=== PATIENT | female | born 1960 | race Caucasian/White ===

== ENCOUNTER 2022-02-17 23:45 | Inpatient (IN) | payer BC ==
[~2022-02-17] VITALS: Ht 167.6 cm; Wt 99.0 kg
[2022-02-18] VITALS (23 sets, daily range): BP systolic 71–120; BP diastolic 45–86
[2022-02-18] MEDS ORDERED: CYAN25008 PO (01:19)
[2022-02-18] MEDS ORDERED: MELO7.5T29 PO (01:19)
[2022-02-18] MEDS ORDERED: VALS40TA2 PO (01:19)
[2022-02-18] MEDS ORDERED: OMEP20TA63 PO (01:19)
[2022-02-18] MEDS ORDERED: IV DEXTROSE 5% 250 ML BAG. IV PRN (02:15)
[2022-02-18] MEDS ORDERED: HEPARIN for IV BOLUS 10,000 UNIT/10 ML VIAL. IV PRN ×2 (02:15)
[2022-02-18] MEDS ORDERED: DEXTROSE 50% 25 GM / 50ML DISP.SYRIN. IV PRN (02:15)
[2022-02-18] MEDS ORDERED: HEPARIN 25,000UTS/250ML PREMIX 250 ML IV PRN (02:15)
--- NOTE | 2022-02-18 02:36 | NUR ---
Patient arrived to room 115 at 0000 from [facility]. Patient hooked up to ICU monitors. Patient A&Ox4, SR/ST on monitor, on 50% bipap breathing in 20s, patent IV present, no complaints of acute pain, Heparin gtt and fluid bolus running. Patient's skin is cold and pale, states that's normal for her and that her hands sometimes turns purple. Patient states she has been having L sided neck pain since mid November and that her pain now is a 3 which is tolerable and normal for her. Patient oriented to unit routines, call light, bed controls, tv controls, activity, diet, and POC. Difficult to get BP and SpO2 on her due to poor circulation. Dr. Dickey notified of patient arrival, admit orders received. Dr. Guerrero paged as well, awaiting call back.
[2022-02-18 02:39] LABS: BASE EXCESS ABG -3 mmol/L (-3-3); FIO2 ABG 50; HCO3 ABG 20 mmol/L (21-28); PCO2 ABG 32 mmHg (35-46); PO2 ABG 212 mmHg (65-108); SAT O2 ABG 99 % (92-99)
[2022-02-18] MEDS: ANTI-COAG MONITOR BY PHARMACY. MC PRN ×2 (03:44→16:05)
[2022-02-18] MEDS: ONDANSETRON PF 4 MG/2 ML VIAL. IVP PRN (04:01)
[2022-02-18 06:08] LABS: BASO % 0 % (0-3); EOS % 0 % (0-3); HEMATOCRIT 43.1 % (36.0-47.0); LYMPH # 0.8 x10^3/uL (1.0-4.8); LYMPH % 5 % (24-48); MEAN CORPUSCULAR HEMOGLOBIN 31 pg (25-35); MEAN CORPUSCULAR HGB CONC 33 g/dL (31-37); MEAN CORPUSCULAR VOLUME 95 fL (79-100); MONO # 0.6 x10^3/uL (0.0-1.1); MONO % 4 % (0-9); NEUT # 13.9 x10^3/uL (1.8-7.7); NEUT % 90 % (31-73); PLATELET COUNT 163 x10^3/uL (140-400); RED BLOOD COUNT 4.51 x10^6/uL (3.50-5.40); RED CELL DISTRIBUTION WIDTH 16.9 % (11.5-14.5); WHITE BLOOD COUNT 15.4 x10^3/uL (4.0-11.0)
[2022-02-18 06:22] LABS: CALCIUM 8.7 mg/dL (8.5-10.1); CREATININE 1.4 mg/dL (0.6-1.0); GFR 38.1
[2022-02-18] MEDS: INSULIN LISPRO 300 UNITS/3 ML VIAL. SQ SCH ×3 (08:00→17:00)
[2022-02-18 08:40] LABS: BASE EXCESS ABG 2 mmol/L (-3-3); HCO3 ABG 24 mmol/L (21-28); PCO2 ABG 30 mmHg (35-46); PO2 ABG 118 mmHg (65-108); SAT O2 ABG 98 % (92-99)
[2022-02-18 08:44] LABS: FIO2 ABG 35
--- NOTE | 2022-02-18 09:32 | CONS ---
DATE OF CONSULTATION: 02/18/2022 PULMONARY CONSULTATION ATTENDING PHYSICIAN: Mar Dickey MD REASON FOR CONSULTATION: Pulmonary embolism, acute hypoxic respiratory failure. HISTORY OF PRESENT ILLNESS: The patient is a 61-year-old obese female with a BMI of 34.6. The patient was presented to [facility] with dyspnea. She said she felt like she was fainting. She had a near syncopal episode. There was some chest pain as well. She underwent evaluation and a CT angiogram was performed. I have reviewed the patient's CT angiogram. It shows bilateral pulmonary embolism. The patient had evidence of right ventricular strain as well. There was sparing of the main stem pulmonary artery. The patient's troponin level was also high, it was 405. She has been transferred to our facility for further evaluation. She is currently on BiPAP at 40% FiO2. Her arterial blood gases reveal a pO2 in the 200. CO2 was not elevated. She denies any prior history of thromboembolism. She has some mild lower extremity edema. She has no known cancers. She is not on any hormone treatment. She states that she is relatively active. Consultation requested for further evaluation and management. PAST MEDICAL HISTORY: No significant history of tobaccoism. No prior history of pulmonary embolism. No known cancers. PAST SURGICAL HISTORY: No recent surgery. ALLERGIES: ALLOPURINOL, BENAZEPRIL, AND LATEX. MEDICATIONS: Reviewed including heparin per protocol. REVIEW OF SYSTEMS: Twelve-point systems obtained. Pertinent positives discussed in my present illness, otherwise noncontributory. All systems that were negative were reviewed as well. SOCIAL HISTORY: No significant tobaccoism. She is updated on COVID vaccine. FAMILY HISTORY: Noncontributory to lungs. PHYSICAL EXAMINATION: VITAL SIGNS: Reviewed. Pulse ox 99%. Blood pressure 113/73. She is afebrile. Pulse is 94-102. NECK: Supple. LUNGS: Clear. CARDIOVASCULAR: With a regular rate. ABDOMEN: Soft, obese. EXTREMITIES: With trace pitting edema bilaterally. LABORATORY DATA: Reviewed. White cell count 15.4, hemoglobin 14.0, platelets are 163. BUN 6, creatinine 1.4. ABGs with a pH of 7.52, pCO2 of 30 and a pO2 of 118 on 35% BiPAP. IMPRESSION: 1. Acute hypoxic respiratory failure secondary to extensive bilateral pulmonary emboli with sparing of the main pulmonary trunk. Etiology not so obvious. She has no known cancers. She has no recent surgery. She is not on any hormone replacement treatment. 2. Abnormal CT angiogram as discussed above. 3. Abnormal troponin, likely secondary to right ventricular ischemia. 4. Rule out deep venous thrombosis. 5. Rule out hypercoagulable state. RECOMMENDATIONS: 1. Discussed with RN and RT. We will try her off the BiPAP. 2. Place her on nasal cannula. 3. Obtain venous Dopplers of lower extremities. 4. Continue heparin per protocol. 5. Obtain echocardiogram. 6. Hypercoagulable panel as an outpatient. 7. Further recommendations to follow. 8. Discussed with Dr. Dickey and discussed with RN. Chart reviewed from [place]. Imaging studies reviewed. Total critical care time [address]: Any TID: [id number]
--- NOTE | 2022-02-18 09:32 | PDOC2 ---
DILLAN CHRIS ZOO CARETAKER 02/18/22 0932: CARDIAC CONSULT DATE OF CONSULT Date of Consult DATE: 02/18/22 TIME: 09:28 REASON FOR CONSULT Reason for Consult: NSTEMI REFERRING PHYSICIAN Referring Physician: Dr. Dickey SOURCE Source: Chart review, Patient HISTORY OF PRESENT ILLNESS HISTORY OF PRESENT ILLNESS This is a 61 yo female who initially presented to [facility] secondary to shortness of breath. Patient reports experiencing shortness of breath upon exertion since Friday. Has progressively worsened. Has also experienced nausea/vomiting and diarrhea. On Friday went up the stairs and became so significantly short of breath that she nearly passed out. Baring pressure in her central chest. EMS was called. Oxygen saturation was noted in the 80's. Patient was placed on nonrebreather. Chest xray without acute findings. Chest CTA noted with extensive bilateral pulmonary emboli with mild enlargement of the right lateral ventricle. Anticoagulation therapy was initiated. Troponin noted to be mildly elevated, which prompted this consult. Patient was transferred to [facility] for further evaluation and treatment. PAST MEDICAL HISTORY Cardiovascular: HTN GI: GERD Musculoskeletal: Osteoarthritis PAST SURGICAL HISTORY Past Surgical History: Total knee replacement, Other (spinal fusion) FAMILY HISTORY Family History: Heart Disease, Hypertension, Stroke SOCIAL HISTORY Smoke: No ALCOHOL: none Drugs: None Lives: Alone CURRENT MEDICATIONS CURRENT MEDICATIONS Current Medications Medications (Trade) Dose Ordered Sig/Esthela Route PRN Reason Start Time Stop Time Status Last Admin Dose Admin Ondansetron HCl (Zofran) 4 mg PRN Q6HRS PRN IVP NAUSEA/VOMITING 1ST CHOICE 02/18/22 02:15 02/18/22 04:01 Info (Anti-Coagulation Monitoring By Pharmacy) 1 each PRN DAILY PRN MC PER PROTOCOL 02/18/22 02:45 02/18/22 03:44 ALLERGIES ALLERGIES: Coded Allergies: latex (Verified Allergy, Severe, 02/18/22) allopurinol (Verified Allergy, Intermediate, Vomiting, 02/18/22) benazepril (Verified Allergy, Intermediate, 02/18/22) ROS Review of System 14 point ROS conducted with pertinent positives noted above in HPI PHYSICAL EXAM General: Alert, Oriented X3, Cooperative, mild distress HEENT: Atraumatic Lungs: Other (diminished throughout ) Heart: Regular rate (SR with PAC's ) Abdomen: Soft Extremities: No edema Skin: No significant lesion Neuro: Normal speech, Sensation intact Psych/Mental Status: Mental status NL, Mood NL MUSCULOSKELETAL: Osteoarthritic changes both hands VITALS/I&O VITALS/I&O: Vital Signs Date Time Temp Pulse Resp B/P (MAP) Pulse Ox O2 Delivery O2 Flow Rate FiO2 02/18/22 08:15 98 BiPAP/CPAP 02/18/22 06:00 102 28 113/73 (86) 02/18/22 04:00 97.6 97.6 I & O 02/17/22 02/17/22 02/18/22 15:00 23:00 07:00 Intake Total 71 ml Balance 71 ml LABS Lab: Laboratory Tests Test 02/18/22 01:27 02/18/22 04:30 02/18/22 08:00 O2 Saturation 99 % (92-99) 98 % (92-99) Arterial Blood pH 7.42 (7.35-7.45) 7.52 (7.35-7.45) H Arterial Blood pCO2 at Patient Temp 32 mmHg (35-46) L 30 mmHg (35-46) L Arterial Blood pO2 at Patient Temp 212 mmHg (65-108) H 118 mmHg (65-108) H Arterial Blood HCO3 20 mmol/L (21-28) L 24 mmol/L (21-28) Arterial Blood Base Excess -3 mmol/L (-3-3) 2 mmol/L (-3-3) FiO2 50 35 White Blood Count 15.4 x10^3/uL (4.0-11.0) H Red Blood Count 4.51 x10^6/uL (3.50-5.40) Hemoglobin 14.0 g/dL (12.0-15.5) Hematocrit 43.1 % (36.0-47.0) Mean Corpuscular Volume 95 fL (79-100) Mean Corpuscular Hemoglobin 31 pg (25-35) Mean Corpuscular Hemoglobin Concent 33 g/dL (31-37) Red Cell Distribution Width 16.9 % (11.5-14.5) H Platelet Count 163 x10^3/uL (140-400) Neutrophils (%) (Auto) 90 % (31-73) H Lymphocytes (%) (Auto) 5 % (24-48) L Monocytes (%) (Auto) 4 % (0-9) Eosinophils (%) (Auto) 0 % (0-3) Basophils (%) (Auto) 0 % (0-3) Neutrophils # (Auto) 13.9 x10^3/uL (1.8-7.7) H Lymphocytes # (Auto) 0.8 x10^3/uL (1.0-4.8) L Monocytes # (Auto) 0.6 x10^3/uL (0.0-1.1) Eosinophils # (Auto) 0.0 x10^3/uL (0.0-0.7) Basophils # (Auto) 0.0 x10^3/uL (0.0-0.2) Heparin Anti-Xa Act, Unfractionated 0.36 IU/mL (0.30-0.70) Sodium Level 140 mmol/L (136-145) Potassium Level 4.0 mmol/L (3.5-5.1) Chloride Level 101 mmol/L (98-107) Carbon Dioxide Level 23 mmol/L (21-32) Anion Gap 16 (6-14) H Blood Urea Nitrogen 6 mg/dL (7-20) L Creatinine 1.4 mg/dL (0.6-1.0) H Estimated GFR (Cockcroft-Gault) 38.1 Glucose Level 166 mg/dL (70-99) H Calcium Level 8.7 mg/dL (8.5-10.1) Troponin I High Sensitivity 375 ng/L (4-50) H Laboratory Tests 02/18/22 04:30 Laboratory Tests 02/18/22 04:30 ASSESSMENT/PLAN ASSESSMENT/PLAN 1. Acute respiratory failure secondary to extensive bilateral PE; on heparin gtt. Etiology not clear. Awaiting COVID PCR 2. Chest pain, near syncope; most probably secondary to above. resolved 3. Mild troponin elevation; peak high sensitivity trop 405. Most probably type II, demand ischemia secondary to #1 4. Hypertension; controlled 5. Leukocytosis 6. Hyperglycemia; glucose 377 at [facility] 7. JEAN CLAUDE 8. Morbid obesity Recommendations Echo to assess LV systolic function, RV dilation Lipids A1C Anticoagulation as per pulmonary Supportive care Further pending above. JOSUE SALAS MD 02/18/22 1933: CARDIAC CONSULT ASSESSMENT/PLAN ASSESSMENT/PLAN Patient seen and examined. Agree with above nurse practitioner note. 61-year-old woman with bilateral PE. I have reviewed the CT scan images with the radiologist. No central pulmonary thrombus at therefore she would not be a great candidate for percutaneous thrombectomy. Continue anticoagulation. CC time > 35 minutes DILLAN CHRIS APRN Feb 18, 2022 09:32 JOSUE SALAS MD Feb 18, 2022 16:41
[2022-02-18 10:38] LABS: CHOLESTEROL/HDL RATIO 3.2
--- NOTE | 2022-02-18 11:28 | HP ---
DATE OF SERVICE: 02/18/2022 ADMIT DATE: 02/18/2022 HISTORY OF PRESENT ILLNESS: The patient is a 61-year-old female patient who presented to the Emergency Room of [facility] with a complaint of shortness of breath, the patient apparently has been feeling generally ill like she has cold with a fever for a couple of days. She has had more chills today, she started to have significant increasing shortness of breath yesterday evening that she called EMS. When EMS arrived, they found her to be hypoxic with an oxygen saturation of only 80%. They placed her on nonrebreather mask. She denied any previous history of lung or cardiac history. She was extensively investigated in the Emergency Room, has had an EKG, which showed that she was in sinus tachycardia with normal axis, no ST segment elevation or depression. She was in AFib. She has had a chest x-ray, which basically showed the cardiomediastinal silhouette and pulmonary vessels are within normal limits. The pleural spaces are clear and there is no acute cardiopulmonary process. Her lab work showed that she has marked leukocytosis with a white cell count 19,600 with normal hemoglobin, hematocrit and platelet. Her prothrombin time and INR slightly elevated, APTT was 21. She was initially diagnosed with a non-ST segment elevation myocardial infarction as troponin I high sensitivity was 405. However, subsequently she had a CT angio of the chest and this showed that the visualized portion of the thyroid are unremarkable with enlarged mediastinal lymph nodes. Heart size normal. No pericardial effusion. Thoracic aorta has a normal course and caliber. Pulmonary artery is not enlarged. There is extensive bilateral pulmonary emboli extending from the right and left main pulmonary artery into lobar and segmental branches. Airways are patent. No consolidation or pneumothorax. No suspicious lung nodules. No pleural effusion or thickening. Visualized upper abdomen is unremarkable. No suspicious osseous lesion or acute fracture. The patient was started on heparin drip and was transferred to [facility] ICU for further evaluation and treatment. PAST MEDICAL HISTORY: Significant for hypertension, generalized osteoarthritis, and gout. PAST SURGICAL HISTORY: Significant for lumbar laminectomy at L4-S1. She has bilateral total knee arthroplasty and tonsillectomy. ALLERGIES: SHE IS ALLERGIC TO LATEX. MEDICATIONS: She is currently on losartan 50 mg once a day, Prilosec 20 mg once a day, meloxicam 15 mg once a day, B12 tablet 1000 mcg once a day. FAMILY HISTORY: He has one brother, younger, because of AIDS. Her father at age of 55 because of sudden cardiac . Her mother committed suicide at the age of 30. SOCIAL HISTORY: She is single, never , has no children. She never smoked. Drinks 1-2 cans of beer daily and moderate on the weekend and does not use any illicit drugs. 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 REVIEW OF SYSTEMS: The patient denied any blurring of vision, cataracts, glaucoma or macular degeneration. Denied any earache, tinnitus or sensory deafness. Denied any nosebleed, stuffy nose or postnasal drip. Denied any sore throat, sore tongue, toothache, hoarseness of voice or difficulty swallowing. She denied any nausea, vomiting, diarrhea or constipation. Denied any hematemesis, melena or hematochezia. Denied any dysuria, frequency or hematuria. Denied any chest pain. Did complain of shortness of breath, cough that was dry without any sputum or hemoptysis. Denied any orthopnea or paroxysmal nocturnal dyspnea. On further questioning showed that the patient has not traveled for long distances by air or land. She is not on any hormonal replacement therapy. She has not had any recent surgery and basically, her pulmonary emboli are unprovoked. She has no family history of clotting disorder raising the possibility that she probably has some underlying malignancy and/or that this is a complication of perhaps recent COVID infection, although his coronavirus is still pending at the time of this dictation. PHYSICAL EXAMINATION: GENERAL: On arrival to the Emergency Room, the patient was clearly in respiratory distress. She was markedly tachypneic, tachycardic, but no pallor, jaundice, cyanosis or thyromegaly. No jugular venous distention, bilateral lower extremity edema. VITAL SIGNS: Her heart rate was 116, blood pressure was 123/83, temperature was 97.6, respiratory rate was 36 and oxygen saturation was 87% on room air that has improved to 100% when she was started on BiPAP. HEAD, EYES, EARS, NOSE, AND THROAT: Normocephalic, atraumatic. NECK: Supple. HEART: Showed normal first and second heart sounds. No gallop, rub or murmur. CHEST: Showed central trachea, equal bilateral expansion, air entry, vesicular breath sounds. No crepitation or rhonchi. ABDOMEN: Distended, soft, nontender. NEUROLOGIC: She was grossly intact. LABORATORY DATA: Showed a serum sodium was 135, potassium 3.7, chloride 95, bicarbonate 19, anion gap of 20, BUN 2, creatinine is 1.5. Estimated GFR was 35 mL per minute. Her glucose was 377, calcium was 8.6. Total bilirubin, AST, ALT were normal. Alkaline phosphatase slightly elevated. Troponin I high sensitivity was 405. Total protein 5.7, albumin was 2.8. Her white cell count was 19.6, hemoglobin 14.6, hematocrit 45, MCV 98 and platelet count of 176,000 with automated differential showed 86% polymorphs, 8% lymphocytes and 6% monocytes. ASSESSMENT: In summary, this is a 61-year-old female patient who was originally seen with increasing shortness of breath and acute hypoxic respiratory failure. Initial investigation showed the troponin I to be high at 405; however, further evaluation showed that she has bilateral pulmonary emboli. The patient also is known to have hypertension, gout, generalized osteoarthritis. Her lab work showed that she has slightly deranged coagulation in the form of prothrombin time. INR is slightly elevated. Her BUN is extremely low at 2. Her blood sugar was high at 377 and she has marked leukocytosis, probably reactive. The patient was started on heparin and continued on BiPAP machine and was transferred to [facility] to consult with the manager food and the mechanical systems engineer. I held her losartan given her blood pressure is low and she has also impaired kidney function with a creatinine of 1.5. We will monitor her blood sugar. She seemed to be diabetic as her blood sugar was 277. We will start her on insulin sliding scale. LANI DR: Jaja TID: [id number]
[2022-02-18] MEDS: PANTOPRAZOLE IV PUSH 40 MG VIAL. IVP SCH (12:00)
[2022-02-18] MEDS ORDERED: IV NORMAL SALINE 500ML BAG 500 ML IV ONE (14:15)
[2022-02-18] MEDS: IV NORMAL SALINE 1000ML BAG 1,000 ML IV SCH (14:30)
--- NOTE | 2022-02-18 16:53 | RAD ---
US BILATERAL LOWEREXTREMITY VENOUS DOPPLER 02/18/2022 2:40 PM Clinical Information: Leg edema, PUI. Comparison: None. Technique: Multiple grayscale, color Doppler, and spectral Doppler sonographic images of the lower ex tremity venous structures were obtained. Findings: The right common femoral, femoral, and popliteal veins exhibit normal compression, respiratory phasic ity, and augmentation. No intraluminal thrombi are identified. Color Doppler flow is demonstrated in the right posterior tibial veins. The left common femoral, femoral, and popliteal veins exhibit normal compression, respiratory phasici ty, and augmentation. No intraluminal thrombi are identified. Color Doppler flow is demonstrated in t he left posterior tibial veins. Greater saphenous veins are patent at the saphenofemoral junction. Impression: 1. No evidence of deep venous thrombosis. Electronically signed by: Shama Ogden MD (02/18/2022 4:50 PM) [facility]ITAL[facility]
--- NOTE | 2022-02-18 17:26 | CARD ---
MR#: [id number] Date of Study: 02/18/2022 Ordering Physician: ZACH RAO, Referring Physician: Russell TAY: Deejay Stephens [facility] APPROVED REPORT EXAM: Two-dimensional and M-mode echocardiogram with Doppler and color Doppler. Other Information Quality : FairHR: 94bpm Rhythm : NSRTechnically limited study due to body habitus. INDICATION CVA/TIA Chest Pain Pulmonary Embolism RISK FACTORS Hypertension Obesity 2D DIMENSIONS Left Atrium(2D)3.6 (1.6-4.0cm)IVSd1.1 (0.7-1.1cm) Aortic Root(2D)3.3 (2.0-3.7cm)LVDd3.7 (3.9-5.9cm) LVOT Diameter1.7 (1.8-2.4cm)PWd1.1 (0.7-1.1cm) LVDs2.5 (2.5-4.0cm)FS (%) 34.4 % SV38.3 mlLVEF(%)64.3 (>50%) Aortic Valve AoV Peak Jairo.104.4cm/sAoV VTI19.6cm AO Peak GR.4.4mmHgAO Mean GR.3mmHg Mitral Valve MV E Bnqridms57.4cm/sMV DECEL [id number] MV A Tuhgctnv82.9cm/sE/A Ratio0.6 TDI Medial E' P. V5.21cm/sE/Medial E'7.2 Tricuspid Valve TR P. Uffdtwju967jn/sTR Peak Gr.27mmHg LEFT VENTRICLE The left ventricle is normal size. There is normal left ventricular wall thickness. The left ventricu lar systolic function is normal and the ejection fraction is within normal range. EF 55% There is a f lattened septum consistent with right ventricle volume and pressure overload. Otherwise, grossly norm al wall motion. Tissue Doppler imaging reveals moderate left ventricular diastolic dysfunction. No le ft ventricle thrombus noted on this study. There is no ventricular septal defect visualized. There is no left ventricular aneurysm. There is no mass noted in the left ventricle. RIGHT VENTRICLE The right ventricle is moderately dilated. There is normal right ventricular wall thickness. RV Systo lic function is mildly reduced. ATRIA The left atrium size is normal. The right atrium is moderately dilated. The interatrial septum is int act with no evidence for an atrial septal defect or patent foramen ovale as noted on 2-D or Doppler i maging. AORTIC VALVE The aortic valve is not well visualized. Doppler and Color Flow revealed no significant aortic regurg itation. There is no significant aortic valvular stenosis. MITRAL VALVE The mitral valve is normal in structure and function. There is no evidence of mitral valve prolapse. There is no mitral valve stenosis. Doppler and Color Flow revealed no mitral valve regurgitation note d. TRICUSPID VALVE Not well visualized. Doppler and Color Flow revealed trace to mild tricuspid regurgitation. The PA pr essure was estimated at 42 mmHg. There is no tricuspid valve prolapse or vegetation. There is no tric uspid valve stenosis. PULMONIC VALVE The pulmonary valve is not well visualized. Doppler and Color Flow revealed no pulmonic valvular regu rgitation. There is no pulmonic valvular stenosis. GREAT VESSELS The aortic root is normal in size. The ascending aorta is normal in size. The IVC is normal in size a nd collapses >50% with inspiration. PERICARDIAL EFFUSION There is no pleural effusion. There is no evidence of significant pericardial effusion. Critical Notification Critical Value: No <Conclusion> The left ventricular systolic function is normal and the ejection fraction is within normal range. EF 55% There is a flattened septum consistent with right ventricle volume and pressure overload. Otherwise, grossly normal wall motion. The right ventricle is moderately dilated. RV Systolic function is mildly reduced. Doppler and Color Flow revealed trace to mild tricuspid regurgitation. The PA pressure was estimated at 42 mmHg. Signed by : Иван Guerrero, Electronically Approved : 02/18/2022 17:26:05
[2022-02-19] VITALS (14 sets, daily range): BP systolic 99–152; BP diastolic 68–99
[2022-02-19 01:09] LABS: HEMOGLOBIN A1C 5.4 % (4.8-5.6)
[2022-02-19] MEDS: IV NORMAL SALINE 1000ML BAG 1,000 ML IV SCH (02:02)
[2022-02-19] MEDS: INSULIN LISPRO 300 UNITS/3 ML VIAL. SQ SCH ×3 (08:00→17:00)
[2022-02-19] MEDS: PANTOPRAZOLE IV PUSH 40 MG VIAL. IVP SCH (08:21)
[2022-02-19 08:49] LABS: BASO # 0.1 x10^3/uL (0.0-0.2); BASO % 1 % (0-3); EOS # 0.1 x10^3/uL (0.0-0.7); EOS % 1 % (0-3); HEMATOCRIT 39.8 % (36.0-47.0); HEMOGLOBIN 12.7 g/dL (12.0-15.5); LYMPH # 1.4 x10^3/uL (1.0-4.8); LYMPH % 17 % (24-48); MEAN CORPUSCULAR HEMOGLOBIN 31 pg (25-35); MEAN CORPUSCULAR HGB CONC 32 g/dL (31-37); MEAN CORPUSCULAR VOLUME 96 fL (79-100); MONO # 0.6 x10^3/uL (0.0-1.1); MONO % 8 % (0-9); NEUT # 5.9 x10^3/uL (1.8-7.7); NEUT % 74 % (31-73); PLATELET COUNT 164 x10^3/uL (140-400); RED BLOOD COUNT 4.16 x10^6/uL (3.50-5.40); RED CELL DISTRIBUTION WIDTH 16.9 % (11.5-14.5)
[2022-02-19 09:11] LABS: ALBUMIN 2.5 g/dL (3.4-5.0); ALBUMIN/GLOBULIN RATIO 0.8 (1.0-1.7); CALCIUM 8.3 mg/dL (8.5-10.1); GFR 56.2; POTASSIUM 3.5 mmol/L (3.5-5.1); TOTAL BILIRUBIN 0.5 mg/dL (0.2-1.0); TOTAL PROTEIN 5.8 g/dL (6.4-8.2)
--- NOTE | 2022-02-19 09:19 | PN ---
DATE: 02/19/2022 SUBJECTIVE: The patient is resting, slightly propped up in bed, no apparent distress. She is awake, alert. On questioning her, denied any complaint except that she is hungry and thirsty. She is now on 3 liters of oxygen by nasal cannula, maintaining her oxygen saturation at 99%. Her venous Doppler ultrasound of both lower extremities was negative and her echocardiogram showed that she has normal left ventricular systolic function and ejection fraction that was within normal range at 55%. There is a flattened septum consistent with right ventricular volume and pressure overload. Otherwise, grossly normal wall motion. The right ventricle is moderately dilated. Right ventricular systolic function is mildly reduced. Doppler and color flow revealed mild tricuspid regurgitation. Her pulmonary artery pressure was estimated at 42 mmHg. PHYSICAL EXAMINATION: GENERAL: When I examined her this morning, she looked well and was clearly in no apparent respiratory distress. No pallor, jaundice, cyanosis or thyromegaly. No jugular venous distention. No limb edema. VITAL SIGNS: Her heart rate was 78, blood pressure is 127/71, temperature was 98.3, respiratory rate was 24 and oxygen saturation was 99% on 2 liters of oxygen by nasal cannula. HEAD, EYES, EARS, NOSE, AND THROAT: Normocephalic, atraumatic. NECK: Supple. HEART: Showed normal first and second heart sounds. No gallop, rub or murmur. CHEST: Clear to auscultation, no crepitation or rhonchi. ABDOMEN: Distended, soft, nontender. NEUROLOGIC: She was grossly intact. LABORATORY DATA: Lab work this morning showed a white cell count of 8000, hemoglobin 13, hematocrit 39, MCV 96, platelet count of 164,000. Her chemistry showed a serum sodium 140, potassium 4, chloride 101, bicarbonate 23, anion gap of 16, BUN 6, creatinine 1.4. Estimated GFR was 38 mL per minute. Her glucose 166, calcium was 8.7, her hemoglobin A1c was 5.4, serum triglycerides 102. Total cholesterol 131, LDL was 70, VLDL was 20 and HDL cholesterol was 41, the ratio 3.2. ASSESSMENT: 1. This is a 61-year-old female patient with unprovoked bilateral pulmonary emboli. Other than morbid obesity, the patient has no other predisposing factor. 2. Hypertension. 3. Generalized osteoarthritis. 4. Gout. PLAN: Plan is to obviously continue with heparin drip, continue with IV Protonix, continue with IV fluid, continue with nutritional support in the form of a regular diet. We will also start physical and occupational therapy. CARMEN DR: Jaja TID: [id number]
--- NOTE | 2022-02-19 09:46 | PDOC ---
PULMONARY PROGRESS NOTES DATE: 02/19/22 TIME: 09:43 Subjective Patient feels much better. Off the BiPAP. On nasal cannula. Vitals Vital Signs Date Time Temp Pulse Resp B/P (MAP) Pulse Ox O2 Delivery O2 Flow Rate FiO2 02/19/22 09:00 75 20 115/74 (88) 100 3.0 02/19/22 08:00 97.7 97.7 02/19/22 08:00 Nasal Cannula General: Alert, No acute distress Lungs: Clear Cardiovascular: S1 Abdomen: Soft, Other (Obese) Extremities: No Edema Skin: Warm Labs Laboratory Tests Test 02/18/22 01:27 02/18/22 04:30 02/18/22 08:00 02/18/22 10:30 O2 Saturation 99 % (92-99) 98 % (92-99) Arterial Blood pH 7.42 (7.35-7.45) 7.52 (7.35-7.45) Arterial Blood pCO2 at Patient Temp 32 mmHg (35-46) 30 mmHg (35-46) Arterial Blood pO2 at Patient Temp 212 mmHg (65-108) 118 mmHg (65-108) Arterial Blood HCO3 20 mmol/L (21-28) 24 mmol/L (21-28) Arterial Blood Base Excess -3 mmol/L (-3-3) 2 mmol/L (-3-3) FiO2 50 35 White Blood Count 15.4 x10^3/uL (4.0-11.0) Red Blood Count 4.51 x10^6/uL (3.50-5.40) Hemoglobin 14.0 g/dL (12.0-15.5) Hematocrit 43.1 % (36.0-47.0) Mean Corpuscular Volume 95 fL (79-100) Mean Corpuscular Hemoglobin 31 pg (25-35) Mean Corpuscular Hemoglobin Concent 33 g/dL (31-37) Red Cell Distribution Width 16.9 % (11.5-14.5) Platelet Count 163 x10^3/uL (140-400) Neutrophils (%) (Auto) 90 % (31-73) Lymphocytes (%) (Auto) 5 % (24-48) Monocytes (%) (Auto) 4 % (0-9) Eosinophils (%) (Auto) 0 % (0-3) Basophils (%) (Auto) 0 % (0-3) Neutrophils # (Auto) 13.9 x10^3/uL (1.8-7.7) Lymphocytes # (Auto) 0.8 x10^3/uL (1.0-4.8) Monocytes # (Auto) 0.6 x10^3/uL (0.0-1.1) Eosinophils # (Auto) 0.0 x10^3/uL (0.0-0.7) Basophils # (Auto) 0.0 x10^3/uL (0.0-0.2) Heparin Anti-Xa Act, Unfractionated 0.36 IU/mL (0.30-0.70) 0.50 IU/mL (0.30-0.70) Sodium Level 140 mmol/L (136-145) Potassium Level 4.0 mmol/L (3.5-5.1) Chloride Level 101 mmol/L (98-107) Carbon Dioxide Level 23 mmol/L (21-32) Anion Gap 16 (6-14) Blood Urea Nitrogen 6 mg/dL (7-20) Creatinine 1.4 mg/dL (0.6-1.0) Estimated GFR (Cockcroft-Gault) 38.1 Glucose Level 166 mg/dL (70-99) Hemoglobin A1c 5.4 % (4.8-5.6) Calcium Level 8.7 mg/dL (8.5-10.1) Troponin I High Sensitivity 375 ng/L (4-50) Triglycerides Level 102 mg/dL (0-150) Cholesterol Level 131 mg/dL (0-200) LDL Cholesterol, Calculated 70 mg/dL (0-100) VLDL Cholesterol, Calculated 20 mg/dL (0-40) Non-HDL Cholesterol Calculated 90 mg/dL (0-129) HDL Cholesterol 41 mg/dL (40-60) Cholesterol/HDL Ratio 3.2 Test 02/18/22 17:50 02/19/22 08:00 02/19/22 08:25 02/19/22 09:17 Heparin Anti-Xa Act, Unfractionated 0.67 IU/mL (0.30-0.70) 0.51 IU/mL (0.30-0.70) White Blood Count 8.0 x10^3/uL (4.0-11.0) Red Blood Count 4.16 x10^6/uL (3.50-5.40) Hemoglobin 12.7 g/dL (12.0-15.5) Hematocrit 39.8 % (36.0-47.0) Mean Corpuscular Volume 96 fL (79-100) Mean Corpuscular Hemoglobin 31 pg (25-35) Mean Corpuscular Hemoglobin Concent 32 g/dL (31-37) Red Cell Distribution Width 16.9 % (11.5-14.5) Platelet Count 164 x10^3/uL (140-400) Neutrophils (%) (Auto) 74 % (31-73) Lymphocytes (%) (Auto) 17 % (24-48) Monocytes (%) (Auto) 8 % (0-9) Eosinophils (%) (Auto) 1 % (0-3) Basophils (%) (Auto) 1 % (0-3) Neutrophils # (Auto) 5.9 x10^3/uL (1.8-7.7) Lymphocytes # (Auto) 1.4 x10^3/uL (1.0-4.8) Monocytes # (Auto) 0.6 x10^3/uL (0.0-1.1) Eosinophils # (Auto) 0.1 x10^3/uL (0.0-0.7) Basophils # (Auto) 0.1 x10^3/uL (0.0-0.2) Sodium Level 143 mmol/L (136-145) Potassium Level 3.5 mmol/L (3.5-5.1) Chloride Level 106 mmol/L (98-107) Carbon Dioxide Level 27 mmol/L (21-32) Anion Gap 10 (6-14) Blood Urea Nitrogen 11 mg/dL (7-20) Creatinine 1.0 mg/dL (0.6-1.0) Estimated GFR (Cockcroft-Gault) 56.2 BUN/Creatinine Ratio 11 (6-20) Glucose Level 134 mg/dL (70-99) Calcium Level 8.3 mg/dL (8.5-10.1) Total Bilirubin 0.5 mg/dL (0.2-1.0) Aspartate Amino Transf (AST/SGOT) 32 U/L (15-37) Alanine Aminotransferase (ALT/SGPT) 24 U/L (14-59) Alkaline Phosphatase 112 U/L (46-116) Total Protein 5.8 g/dL (6.4-8.2) Albumin 2.5 g/dL (3.4-5.0) Albumin/Globulin Ratio 0.8 (1.0-1.7) Glucose (Fingerstick) 144 mg/dL (70-99) Laboratory Tests Test 02/18/22 10:30 02/18/22 17:50 02/19/22 08:00 02/19/22 08:25 Heparin Anti-Xa Act, Unfractionated 0.50 IU/mL (0.30-0.70) 0.67 IU/mL (0.30-0.70) 0.51 IU/mL (0.30-0.70) White Blood Count 8.0 x10^3/uL (4.0-11.0) Red Blood Count 4.16 x10^6/uL (3.50-5.40) Hemoglobin 12.7 g/dL (12.0-15.5) Hematocrit 39.8 % (36.0-47.0) Mean Corpuscular Volume 96 fL (79-100) Mean Corpuscular Hemoglobin 31 pg (25-35) Mean Corpuscular Hemoglobin Concent 32 g/dL (31-37) Red Cell Distribution Width 16.9 % (11.5-14.5) Platelet Count 164 x10^3/uL (140-400) Neutrophils (%) (Auto) 74 % (31-73) Lymphocytes (%) (Auto) 17 % (24-48) Monocytes (%) (Auto) 8 % (0-9) Eosinophils (%) (Auto) 1 % (0-3) Basophils (%) (Auto) 1 % (0-3) Neutrophils # (Auto) 5.9 x10^3/uL (1.8-7.7) Lymphocytes # (Auto) 1.4 x10^3/uL (1.0-4.8) Monocytes # (Auto) 0.6 x10^3/uL (0.0-1.1) Eosinophils # (Auto) 0.1 x10^3/uL (0.0-0.7) Basophils # (Auto) 0.1 x10^3/uL (0.0-0.2) Sodium Level 143 mmol/L (136-145) Potassium Level 3.5 mmol/L (3.5-5.1) Chloride Level 106 mmol/L (98-107) Carbon Dioxide Level 27 mmol/L (21-32) Anion Gap 10 (6-14) Blood Urea Nitrogen 11 mg/dL (7-20) Creatinine 1.0 mg/dL (0.6-1.0) Estimated GFR (Cockcroft-Gault) 56.2 BUN/Creatinine Ratio 11 (6-20) Glucose Level 134 mg/dL (70-99) Calcium Level 8.3 mg/dL (8.5-10.1) Total Bilirubin 0.5 mg/dL (0.2-1.0) Aspartate Amino Transf (AST/SGOT) 32 U/L (15-37) Alanine Aminotransferase (ALT/SGPT) 24 U/L (14-59) Alkaline Phosphatase 112 U/L (46-116) Total Protein 5.8 g/dL (6.4-8.2) Albumin 2.5 g/dL (3.4-5.0) Albumin/Globulin Ratio 0.8 (1.0-1.7) Test 02/19/22 09:17 Glucose (Fingerstick) 144 mg/dL (70-99) Medications Active Scripts Medications Dose Route/Sig Max Daily Dose Days Date Category Vitamin B12 (Cyanocobalamin (Vitamin B-12)) 2,500 Mcg Tablet Unknown Dose PO DAILY 02/18/22 Reported Meloxicam 7.5 Mg Tablet Unknown Dose PO DAILY 02/18/22 Reported Diovan (Valsartan) 40 Mg Tablet Unknown Dose PO DAILY 02/18/22 Reported Prilosec Otc (Omeprazole Magnesium) 20 Mg Tablet.dr 1 Tab PO DAILY 02/18/22 Reported Impression . 1. Acute hypoxic respiratory failure secondary to extensive bilateral pulmonary emboli with sparing of the main pulmonary trunk. Etiology not so obvious. She has no known cancers. She has no recent surgery. She is not on any hormone replacement treatment. Underlying obesity is a risk factor. 2. Abnormal CT angiogram as discussed above. 3. Abnormal troponin, likely secondary to right ventricular ischemia. 4. No evidence of deep venous thrombosis. 5. Rule out hypercoagulable state. 6. Abnormal echocardiogram with evidence of RV dysfunction Plan . 1. Discussed with RN . Clinically much improved. 2. Continue nasal cannula. 3. Negative venous Dopplers of lower extremities. 4. Continue heparin per protocol. Can switch to oral Eliquis 5. Reviewed echocardiogram. RV pressure overload noted. Hemodynamically stable. No need for thrombolytic 6. Hypercoagulable panel as an outpatient. 7. Outpatient work-up for any malignancy 8. Discussed with Dr. Dickey and discussed with RN. 9. Will likely need longer duration of anticoagulation since etiology is not so obvious except for underlying obesity. 10. Transfer to the floor ZACH RAO MD Feb 19, 2022 09:46
[2022-02-19] MEDS: APIXABAN 5 MG TABLET. PO SCH ×2 (10:48→20:44)
--- NOTE | 2022-02-19 13:11 | PDOC ---
ED BARR [employer] 02/19/22 1311: CARDIO Progress Notes Date and Time Date of Service 02/19/2022 Time of Evaluation 1300 Subjective Subjective: No Chest Pain, No shortness of breath, No Palpitations Vitals Vitals Vital Signs Date Time Temp Pulse Resp B/P (MAP) Pulse Ox O2 Delivery O2 Flow Rate FiO2 02/19/22 12:03 98 Nasal Cannula 2.0 02/19/22 10:00 84 21 129/75 (93) 02/19/22 08:00 97.7 97.7 Weight Weight [ ] Input and Output Intake and Output Intake and Output 02/19/22 07:00 Intake Total 1135 ml Output Total 540 ml Balance 595 ml Intake Oral 0 ml IV Total 1135 ml Output Urine Total 540 ml # Voids 2 Laboratory Labs Laboratory Tests Test 02/18/22 17:50 02/19/22 08:00 02/19/22 08:25 02/19/22 09:17 Heparin Anti-Xa Act, Unfractionated 0.67 IU/mL (0.30-0.70) 0.51 IU/mL (0.30-0.70) White Blood Count 8.0 x10^3/uL (4.0-11.0) Red Blood Count 4.16 x10^6/uL (3.50-5.40) Hemoglobin 12.7 g/dL (12.0-15.5) Hematocrit 39.8 % (36.0-47.0) Mean Corpuscular Volume 96 fL (79-100) Mean Corpuscular Hemoglobin 31 pg (25-35) Mean Corpuscular Hemoglobin Concent 32 g/dL (31-37) Red Cell Distribution Width 16.9 % (11.5-14.5) Platelet Count 164 x10^3/uL (140-400) Neutrophils (%) (Auto) 74 % (31-73) Lymphocytes (%) (Auto) 17 % (24-48) Monocytes (%) (Auto) 8 % (0-9) Eosinophils (%) (Auto) 1 % (0-3) Basophils (%) (Auto) 1 % (0-3) Neutrophils # (Auto) 5.9 x10^3/uL (1.8-7.7) Lymphocytes # (Auto) 1.4 x10^3/uL (1.0-4.8) Monocytes # (Auto) 0.6 x10^3/uL (0.0-1.1) Eosinophils # (Auto) 0.1 x10^3/uL (0.0-0.7) Basophils # (Auto) 0.1 x10^3/uL (0.0-0.2) Sodium Level 143 mmol/L (136-145) Potassium Level 3.5 mmol/L (3.5-5.1) Chloride Level 106 mmol/L (98-107) Carbon Dioxide Level 27 mmol/L (21-32) Anion Gap 10 (6-14) Blood Urea Nitrogen 11 mg/dL (7-20) Creatinine 1.0 mg/dL (0.6-1.0) Estimated GFR (Cockcroft-Gault) 56.2 BUN/Creatinine Ratio 11 (6-20) Glucose Level 134 mg/dL (70-99) Calcium Level 8.3 mg/dL (8.5-10.1) Total Bilirubin 0.5 mg/dL (0.2-1.0) Aspartate Amino Transf (AST/SGOT) 32 U/L (15-37) Alanine Aminotransferase (ALT/SGPT) 24 U/L (14-59) Alkaline Phosphatase 112 U/L (46-116) Total Protein 5.8 g/dL (6.4-8.2) Albumin 2.5 g/dL (3.4-5.0) Albumin/Globulin Ratio 0.8 (1.0-1.7) Glucose (Fingerstick) 144 mg/dL (70-99) Physical Exam HEENT: Neck Supple W Full Motion Chest: Symmetric LUNGS: Other (diminished bases) Heart: RRR (SR with PACs) Abdomen: Soft N/T Extremities: No Calf Tenderness Neurology: alert, oriented, follow commands Assessment Assessment 1. Acute respiratory failure secondary to extensive bilateral PE; So far unprovoked. Awaiting COVID PCR. EF nml and findings with septal flattening and RV dilation consistent with PE 2. Chest pain, near syncope; most probably secondary to above. resolved 3. Mild troponin elevation; peak high sensitivity trop 405. Most probably type II, demand ischemia secondary to #1 4. Hypertension; controlled 5. Leukocytosis 6. Hyperglycemia; glucose 377 at [facility]. A1C 5.4 7. JEAN CLAUDE: resolved 8. Morbid obesity Recommendations Eliquis per pulmonary Supportive care Follow up with Dr. Salas 3PM April 03Friday Justicifation of Admission Dx: Justifications for Admission: Justification of Admission Dx: Yes JOSUE SALAS MD 02/19/22 1740: CARDIO Progress Notes Plan Plan The patient was seen and interviewed as well as examined at the bedside. The chart was reviewed. The case was discussed. Agree with the plan of care. ED BARR APRN Feb 19, 2022 13:11 JOSUE SALAS MD Feb 19, 2022 17:40
--- NOTE | 2022-02-19 15:10 | NUR ---
Pt transferred to room 676 by w/c. All belongings transferred with pt. Report called to Hector GARCIA
[2022-02-20 02:26] VITALS: BP 143/75
[2022-02-20 05:00] LABS: BASO % 1 % (0-3); EOS # 0.2 x10^3/uL (0.0-0.7); EOS % 2 % (0-3); HEMATOCRIT 38.3 % (36.0-47.0); HEMOGLOBIN 12.7 g/dL (12.0-15.5); LYMPH # 1.6 x10^3/uL (1.0-4.8); LYMPH % 21 % (24-48); MEAN CORPUSCULAR HEMOGLOBIN 31 pg (25-35); MEAN CORPUSCULAR HGB CONC 33 g/dL (31-37); MEAN CORPUSCULAR VOLUME 95 fL (79-100); MONO # 0.6 x10^3/uL (0.0-1.1); MONO % 8 % (0-9); NEUT # 5.2 x10^3/uL (1.8-7.7); NEUT % 68 % (31-73); PLATELET COUNT 158 x10^3/uL (140-400); RED BLOOD COUNT 4.04 x10^6/uL (3.50-5.40); RED CELL DISTRIBUTION WIDTH 16.4 % (11.5-14.5); WHITE BLOOD COUNT 7.7 x10^3/uL (4.0-11.0)
[2022-02-20 05:28] LABS: ALBUMIN 2.4 g/dL (3.4-5.0); ALBUMIN/GLOBULIN RATIO 0.8 (1.0-1.7); CALCIUM 8.3 mg/dL (8.5-10.1); CREATININE 0.9 mg/dL (0.6-1.0); GFR 63.4; TOTAL BILIRUBIN 0.6 mg/dL (0.2-1.0); TOTAL PROTEIN 5.6 g/dL (6.4-8.2)
[2022-02-20 05:29] LABS: POTASSIUM 3.6 mmol/L (3.5-5.1)
[2022-02-20 07:00] VITALS: BP 120/72
[2022-02-20] MEDS: INSULIN LISPRO 300 UNITS/3 ML VIAL. SQ SCH ×3 (08:00→17:00)
[2022-02-20] MEDS: APIXABAN 5 MG TABLET. PO SCH ×2 (08:44→21:54)
[2022-02-20] MEDS: PANTOPRAZOLE 40 MG TABLET.DR. PO SCH (08:44)
--- NOTE | 2022-02-20 10:13 | PDOC ---
PULMONARY PROGRESS NOTES DATE: 02/20/22 TIME: 10:11 Subjective Patient feels much better. Off nasal cannula. Vitals Vital Signs Date Time Temp Pulse Resp B/P (MAP) Pulse Ox O2 Delivery O2 Flow Rate FiO2 02/20/22 08:00 Room Air 02/20/22 02:26 98.0 98 143/75 (97) 94 98.0 02/19/22 16:00 2.0 02/19/22 12:00 15 General: Alert, No acute distress Lungs: Clear Cardiovascular: S1 Abdomen: Soft, Other (Obese) Extremities: No Edema Skin: Warm Labs Laboratory Tests Test 02/18/22 10:30 02/18/22 14:39 02/18/22 17:50 02/19/22 08:00 Heparin Anti-Xa Act, Unfractionated 0.50 IU/mL (0.30-0.70) 0.67 IU/mL (0.30-0.70) 0.51 IU/mL (0.30-0.70) Coronavirus (COVID-19)(PCR) Not detected (NOT DETECTD) Test 02/19/22 08:25 02/19/22 09:17 02/19/22 14:21 02/19/22 17:04 White Blood Count 8.0 x10^3/uL (4.0-11.0) Red Blood Count 4.16 x10^6/uL (3.50-5.40) Hemoglobin 12.7 g/dL (12.0-15.5) Hematocrit 39.8 % (36.0-47.0) Mean Corpuscular Volume 96 fL (79-100) Mean Corpuscular Hemoglobin 31 pg (25-35) Mean Corpuscular Hemoglobin Concent 32 g/dL (31-37) Red Cell Distribution Width 16.9 % (11.5-14.5) Platelet Count 164 x10^3/uL (140-400) Neutrophils (%) (Auto) 74 % (31-73) Lymphocytes (%) (Auto) 17 % (24-48) Monocytes (%) (Auto) 8 % (0-9) Eosinophils (%) (Auto) 1 % (0-3) Basophils (%) (Auto) 1 % (0-3) Neutrophils # (Auto) 5.9 x10^3/uL (1.8-7.7) Lymphocytes # (Auto) 1.4 x10^3/uL (1.0-4.8) Monocytes # (Auto) 0.6 x10^3/uL (0.0-1.1) Eosinophils # (Auto) 0.1 x10^3/uL (0.0-0.7) Basophils # (Auto) 0.1 x10^3/uL (0.0-0.2) Sodium Level 143 mmol/L (136-145) Potassium Level 3.5 mmol/L (3.5-5.1) Chloride Level 106 mmol/L (98-107) Carbon Dioxide Level 27 mmol/L (21-32) Anion Gap 10 (6-14) Blood Urea Nitrogen 11 mg/dL (7-20) Creatinine 1.0 mg/dL (0.6-1.0) Estimated GFR (Cockcroft-Gault) 56.2 BUN/Creatinine Ratio 11 (6-20) Glucose Level 134 mg/dL (70-99) Calcium Level 8.3 mg/dL (8.5-10.1) Total Bilirubin 0.5 mg/dL (0.2-1.0) Aspartate Amino Transf (AST/SGOT) 32 U/L (15-37) Alanine Aminotransferase (ALT/SGPT) 24 U/L (14-59) Alkaline Phosphatase 112 U/L (46-116) Total Protein 5.8 g/dL (6.4-8.2) Albumin 2.5 g/dL (3.4-5.0) Albumin/Globulin Ratio 0.8 (1.0-1.7) Glucose (Fingerstick) 144 mg/dL (70-99) 128 mg/dL (70-99) 108 mg/dL (70-99) Test 02/19/22 19:36 02/20/22 04:05 02/20/22 08:36 Glucose (Fingerstick) 122 mg/dL (70-99) 108 mg/dL (70-99) White Blood Count 7.7 x10^3/uL (4.0-11.0) Red Blood Count 4.04 x10^6/uL (3.50-5.40) Hemoglobin 12.7 g/dL (12.0-15.5) Hematocrit 38.3 % (36.0-47.0) Mean Corpuscular Volume 95 fL (79-100) Mean Corpuscular Hemoglobin 31 pg (25-35) Mean Corpuscular Hemoglobin Concent 33 g/dL (31-37) Red Cell Distribution Width 16.4 % (11.5-14.5) Platelet Count 158 x10^3/uL (140-400) Neutrophils (%) (Auto) 68 % (31-73) Lymphocytes (%) (Auto) 21 % (24-48) Monocytes (%) (Auto) 8 % (0-9) Eosinophils (%) (Auto) 2 % (0-3) Basophils (%) (Auto) 1 % (0-3) Neutrophils # (Auto) 5.2 x10^3/uL (1.8-7.7) Lymphocytes # (Auto) 1.6 x10^3/uL (1.0-4.8) Monocytes # (Auto) 0.6 x10^3/uL (0.0-1.1) Eosinophils # (Auto) 0.2 x10^3/uL (0.0-0.7) Basophils # (Auto) 0.0 x10^3/uL (0.0-0.2) Sodium Level 139 mmol/L (136-145) Potassium Level 3.6 mmol/L (3.5-5.1) Chloride Level 103 mmol/L (98-107) Carbon Dioxide Level 27 mmol/L (21-32) Anion Gap 9 (6-14) Blood Urea Nitrogen 12 mg/dL (7-20) Creatinine 0.9 mg/dL (0.6-1.0) Estimated GFR (Cockcroft-Gault) 63.4 BUN/Creatinine Ratio 13 (6-20) Glucose Level 103 mg/dL (70-99) Calcium Level 8.3 mg/dL (8.5-10.1) Total Bilirubin 0.6 mg/dL (0.2-1.0) Aspartate Amino Transf (AST/SGOT) 44 U/L (15-37) Alanine Aminotransferase (ALT/SGPT) 28 U/L (14-59) Alkaline Phosphatase 115 U/L (46-116) Total Protein 5.6 g/dL (6.4-8.2) Albumin 2.4 g/dL (3.4-5.0) Albumin/Globulin Ratio 0.8 (1.0-1.7) Laboratory Tests Test 02/19/22 14:21 02/19/22 17:04 02/19/22 19:36 02/20/22 04:05 Glucose (Fingerstick) 128 mg/dL (70-99) 108 mg/dL (70-99) 122 mg/dL (70-99) White Blood Count 7.7 x10^3/uL (4.0-11.0) Red Blood Count 4.04 x10^6/uL (3.50-5.40) Hemoglobin 12.7 g/dL (12.0-15.5) Hematocrit 38.3 % (36.0-47.0) Mean Corpuscular Volume 95 fL (79-100) Mean Corpuscular Hemoglobin 31 pg (25-35) Mean Corpuscular Hemoglobin Concent 33 g/dL (31-37) Red Cell Distribution Width 16.4 % (11.5-14.5) Platelet Count 158 x10^3/uL (140-400) Neutrophils (%) (Auto) 68 % (31-73) Lymphocytes (%) (Auto) 21 % (24-48) Monocytes (%) (Auto) 8 % (0-9) Eosinophils (%) (Auto) 2 % (0-3) Basophils (%) (Auto) 1 % (0-3) Neutrophils # (Auto) 5.2 x10^3/uL (1.8-7.7) Lymphocytes # (Auto) 1.6 x10^3/uL (1.0-4.8) Monocytes # (Auto) 0.6 x10^3/uL (0.0-1.1) Eosinophils # (Auto) 0.2 x10^3/uL (0.0-0.7) Basophils # (Auto) 0.0 x10^3/uL (0.0-0.2) Sodium Level 139 mmol/L (136-145) Potassium Level 3.6 mmol/L (3.5-5.1) Chloride Level 103 mmol/L (98-107) Carbon Dioxide Level 27 mmol/L (21-32) Anion Gap 9 (6-14) Blood Urea Nitrogen 12 mg/dL (7-20) Creatinine 0.9 mg/dL (0.6-1.0) Estimated GFR (Cockcroft-Gault) 63.4 BUN/Creatinine Ratio 13 (6-20) Glucose Level 103 mg/dL (70-99) Calcium Level 8.3 mg/dL (8.5-10.1) Total Bilirubin 0.6 mg/dL (0.2-1.0) Aspartate Amino Transf (AST/SGOT) 44 U/L (15-37) Alanine Aminotransferase (ALT/SGPT) 28 U/L (14-59) Alkaline Phosphatase 115 U/L (46-116) Total Protein 5.6 g/dL (6.4-8.2) Albumin 2.4 g/dL (3.4-5.0) Albumin/Globulin Ratio 0.8 (1.0-1.7) Test 02/20/22 08:36 Glucose (Fingerstick) 108 mg/dL (70-99) Medications Active Scripts Medications Dose Route/Sig Max Daily Dose Days Date Category Vitamin B12 (Cyanocobalamin (Vitamin B-12)) 2,500 Mcg Tablet Unknown Dose PO DAILY 30 02/18/22 Reported Meloxicam 7.5 Mg Tablet Unknown Dose PO DAILY 02/18/22 Reported Diovan (Valsartan) 40 Mg Tablet Unknown Dose PO DAILY 02/18/22 Reported Prilosec Otc (Omeprazole Magnesium) 20 Mg Tablet. 1 Tab PO DAILY 02/18/22 Reported Impression . 1. Acute hypoxic respiratory failure secondary to extensive bilateral pulmonary emboli with sparing of the main pulmonary trunk. Etiology not so obvious. She has no known cancers. She has no recent surgery. She is not on any hormone replacement treatment. Underlying obesity is a risk factor. 2. Abnormal CT angiogram as discussed above. 3. Abnormal troponin, likely secondary to right ventricular ischemia. 4. No evidence of deep venous thrombosis. 5. Rule out hypercoagulable state. 6. Abnormal echocardiogram with evidence of RV dysfunction Plan . 1. Discussed with RN . Clinically much improved. 2. Remains on room air. 3. Negative venous Dopplers of lower extremities. 4. On oral Eliquis 5. Reviewed echocardiogram. RV pressure overload noted. Hemodynamically stable. No need for thrombolytic 6. Hypercoagulable panel as an outpatient. Prescription given to the patient. 7. Outpatient work-up for any malignancy. Patient is not interested in having any work-up. 8. Discussed with Dr. Dickey and discussed with RN. 9. Will likely need longer duration of anticoagulation since etiology is not so obvious except for underlying obesity. May need lifelong maintenance anticoagulation. 10. Okay to discharge her home. Follow-up with me in March with a CTA chest prior to the visit. I have given her prescription for blood work for hypercoagulable panel as an outpatient. ZACH RAO MD Feb 20, 2022 10:13
[2022-02-20 11:00] VITALS: BP 140/84
--- NOTE | 2022-02-20 11:02 | PDOC ---
ED BARR [employer] 02/20/22 1102: CARDIO Progress Notes Date and Time Date of Service 02/20/2022 Time of Evaluation 1020 Subjective Subjective: No Chest Pain, No shortness of breath, No Palpitations Vitals Vitals Vital Signs Date Time Temp Pulse Resp B/P (MAP) Pulse Ox O2 Delivery O2 Flow Rate FiO2 02/20/22 08:00 Room Air 02/20/22 02:26 98.0 98 143/75 (97) 94 98.0 02/19/22 16:00 2.0 02/19/22 12:00 15 Weight Weight [ ] Input and Output Intake and Output Intake and Output 02/20/22 07:00 Intake Total 780 ml Balance 780 ml Intake Oral 780 ml # Voids 1 Laboratory Labs Laboratory Tests Test 02/19/22 14:21 02/19/22 17:04 02/19/22 19:36 02/20/22 04:05 Glucose (Fingerstick) 128 mg/dL (70-99) 108 mg/dL (70-99) 122 mg/dL (70-99) White Blood Count 7.7 x10^3/uL (4.0-11.0) Red Blood Count 4.04 x10^6/uL (3.50-5.40) Hemoglobin 12.7 g/dL (12.0-15.5) Hematocrit 38.3 % (36.0-47.0) Mean Corpuscular Volume 95 fL (79-100) Mean Corpuscular Hemoglobin 31 pg (25-35) Mean Corpuscular Hemoglobin Concent 33 g/dL (31-37) Red Cell Distribution Width 16.4 % (11.5-14.5) Platelet Count 158 x10^3/uL (140-400) Neutrophils (%) (Auto) 68 % (31-73) Lymphocytes (%) (Auto) 21 % (24-48) Monocytes (%) (Auto) 8 % (0-9) Eosinophils (%) (Auto) 2 % (0-3) Basophils (%) (Auto) 1 % (0-3) Neutrophils # (Auto) 5.2 x10^3/uL (1.8-7.7) Lymphocytes # (Auto) 1.6 x10^3/uL (1.0-4.8) Monocytes # (Auto) 0.6 x10^3/uL (0.0-1.1) Eosinophils # (Auto) 0.2 x10^3/uL (0.0-0.7) Basophils # (Auto) 0.0 x10^3/uL (0.0-0.2) Sodium Level 139 mmol/L (136-145) Potassium Level 3.6 mmol/L (3.5-5.1) Chloride Level 103 mmol/L (98-107) Carbon Dioxide Level 27 mmol/L (21-32) Anion Gap 9 (6-14) Blood Urea Nitrogen 12 mg/dL (7-20) Creatinine 0.9 mg/dL (0.6-1.0) Estimated GFR (Cockcroft-Gault) 63.4 BUN/Creatinine Ratio 13 (6-20) Glucose Level 103 mg/dL (70-99) Calcium Level 8.3 mg/dL (8.5-10.1) Total Bilirubin 0.6 mg/dL (0.2-1.0) Aspartate Amino Transf (AST/SGOT) 44 U/L (15-37) Alanine Aminotransferase (ALT/SGPT) 28 U/L (14-59) Alkaline Phosphatase 115 U/L (46-116) Total Protein 5.6 g/dL (6.4-8.2) Albumin 2.4 g/dL (3.4-5.0) Albumin/Globulin Ratio 0.8 (1.0-1.7) Test 02/20/22 08:36 Glucose (Fingerstick) 108 mg/dL (70-99) Physical Exam HEENT: Neck Supple W Full Motion Chest: Symmetric LUNGS: Other (diminished bases) Heart: RRR (SR with PACs) Abdomen: Soft N/T Extremities: No Calf Tenderness, Other (1+bilateral LE pitting edema) Neurology: alert, oriented, follow commands Assessment Assessment 1. Acute respiratory failure secondary to extensive bilateral PE; So far unprovoked. Awaiting COVID PCR. EF nml and findings with septal flattening and RV dilation consistent with PE 2. Chest pain, near syncope; most probably secondary to above. resolved 3. Mild troponin elevation; peak high sensitivity trop 405. Most probably type II, demand ischemia secondary to #1 4. Hypertension; controlled 5. Leukocytosis 6. Hyperglycemia; A1C 5.4 7. JEAN CLAUDE: resolved 8. Morbid obesity Recommendations Eliquis per pulmonary Supportive care Follow up with Dr. Salas 3PM April 03Friday Justicifation of Admission Dx: Justifications for Admission: Justification of Admission Dx: Yes JOSUE SALAS MD 02/21/22 1753: CARDIO Progress Notes Plan Plan Late entry for 02/20/2022 Patient seen and examined. Agree with above nurse practitioner ED BARR APRN Feb 20, 2022 11:02 JOSUE SALAS MD Feb 21, 2022 17:53
--- NOTE | 2022-02-20 11:22 | PN ---
DATE: 02/20/2022 SUBJECTIVE: The patient is resting, slightly propped up in bed, in no apparent distress. She continued to complain of shortness of breath on minimal exertion, although she denied any cough, phlegm or hemoptysis. PHYSICAL EXAMINATION: GENERAL: When I examined her, she looked well and was clearly in no apparent respiratory distress. No pallor, jaundice, cyanosis or thyromegaly. No jugular venous distention. No limb edema. VITAL SIGNS: Her heart rate was 98, blood pressure was 143/75, temperature was 98, respiratory rate was 21 and oxygen saturation was 93% on room air that dropped down to 87 on minimal exertion. HEAD, EYES, EARS, NOSE AND THROAT: Normocephalic, atraumatic. NECK: Supple. HEART: Showed normal first and second heart sounds. No gallop or murmur. CHEST: Showed central trachea, equal bilateral expansion, air entry, vesicular breath sounds. No crepitation or rhonchi. ABDOMEN: Distended, soft, nontender. NEUROLOGIC: She was grossly intact. Her intake was 1135, output was 540. LABORATORY DATA: As of this morning, her white cell count was 7.7, hemoglobin 12.7, hematocrit 38, MCV 95 and platelet count of 158,000. Serum sodium was 139, potassium 3.6, chloride 103, bicarbonate 27, anion gap of 9, BUN 12, creatinine 0.9, estimated GFR was 63 mL per minute, her glucose 103, calcium was 8.3. Total bilirubin, AST, ALT, alkaline phosphatase were normal. Total protein 5.6, albumin was 2.4. ASSESSMENT: 1. Acute hypoxic respiratory failure. 2. Bilateral pulmonary emboli that are unprovoked and only predisposing factor is morbid obesity. 3. Hypertension. 4. Generalized osteoarthritis. 5. Gout. PLAN: Continue with all current medications. She continued to desaturate on minimal exertion. I will arrange for her to have a 6-minute walk tomorrow and can be discharged home with home health tomorrow. CHAO/MENDY DR: Jaja TID: [id number]
--- NOTE | 2022-02-20 11:57 | NUR ---
SS following for discharge planning. SS reviewed pt chart and discussed with pt RN. Pt is from home and is currently on room air. COVID19 negative. Cardiology and Pulmonology consulted. PT/OT ordered. OT recommended home independent. Six minute walk ordered. SS will continue to follow for discharge planning.
[2022-02-20 15:00] VITALS: BP 135/91
[2022-02-20] MEDS: ONDANSETRON PF 4 MG/2 ML VIAL. IVP PRN (17:15)
[2022-02-20 19:00] VITALS: BP 127/66
[2022-02-20 22:04] VITALS: BP 121/76
[2022-02-21 02:28] VITALS: BP 140/67
[2022-02-21] MEDS: PANTOPRAZOLE 40 MG TABLET.DR. PO SCH (07:30)
[2022-02-21] MEDS: APIXABAN 5 MG TABLET. PO SCH (07:53)
[2022-02-21] MEDS: INSULIN LISPRO 300 UNITS/3 ML VIAL. SQ SCH (08:00)
--- NOTE | 2022-02-21 09:10 | PDOC ---
PULMONARY PROGRESS NOTES DATE: 02/21/22 TIME: 09:10 Subjective Patient feels much better. Off nasal cannula. Vitals Vital Signs Date Time Temp Pulse Resp B/P (MAP) Pulse Ox O2 Delivery O2 Flow Rate FiO2 02/21/22 02:28 98.2 86 18 140/67 (91) 95 Room Air 98.2 General: Alert, No acute distress Lungs: Clear Cardiovascular: S1 Abdomen: Soft, Other (Obese) Extremities: No Edema Skin: Warm Labs Laboratory Tests Test 02/19/22 09:17 02/19/22 14:21 02/19/22 17:04 02/19/22 19:36 Glucose (Fingerstick) 144 mg/dL (70-99) 128 mg/dL (70-99) 108 mg/dL (70-99) 122 mg/dL (70-99) Test 02/20/22 04:05 02/20/22 08:36 02/20/22 11:43 02/20/22 17:18 White Blood Count 7.7 x10^3/uL (4.0-11.0) Red Blood Count 4.04 x10^6/uL (3.50-5.40) Hemoglobin 12.7 g/dL (12.0-15.5) Hematocrit 38.3 % (36.0-47.0) Mean Corpuscular Volume 95 fL (79-100) Mean Corpuscular Hemoglobin 31 pg (25-35) Mean Corpuscular Hemoglobin Concent 33 g/dL (31-37) Red Cell Distribution Width 16.4 % (11.5-14.5) Platelet Count 158 x10^3/uL (140-400) Neutrophils (%) (Auto) 68 % (31-73) Lymphocytes (%) (Auto) 21 % (24-48) Monocytes (%) (Auto) 8 % (0-9) Eosinophils (%) (Auto) 2 % (0-3) Basophils (%) (Auto) 1 % (0-3) Neutrophils # (Auto) 5.2 x10^3/uL (1.8-7.7) Lymphocytes # (Auto) 1.6 x10^3/uL (1.0-4.8) Monocytes # (Auto) 0.6 x10^3/uL (0.0-1.1) Eosinophils # (Auto) 0.2 x10^3/uL (0.0-0.7) Basophils # (Auto) 0.0 x10^3/uL (0.0-0.2) Sodium Level 139 mmol/L (136-145) Potassium Level 3.6 mmol/L (3.5-5.1) Chloride Level 103 mmol/L (98-107) Carbon Dioxide Level 27 mmol/L (21-32) Anion Gap 9 (6-14) Blood Urea Nitrogen 12 mg/dL (7-20) Creatinine 0.9 mg/dL (0.6-1.0) Estimated GFR (Cockcroft-Gault) 63.4 BUN/Creatinine Ratio 13 (6-20) Glucose Level 103 mg/dL (70-99) Calcium Level 8.3 mg/dL (8.5-10.1) Total Bilirubin 0.6 mg/dL (0.2-1.0) Aspartate Amino Transf (AST/SGOT) 44 U/L (15-37) Alanine Aminotransferase (ALT/SGPT) 28 U/L (14-59) Alkaline Phosphatase 115 U/L (46-116) Total Protein 5.6 g/dL (6.4-8.2) Albumin 2.4 g/dL (3.4-5.0) Albumin/Globulin Ratio 0.8 (1.0-1.7) Glucose (Fingerstick) 108 mg/dL (70-99) 99 mg/dL (70-99) 117 mg/dL (70-99) Test 02/20/22 20:05 02/21/22 08:23 Glucose (Fingerstick) 146 mg/dL (70-99) 124 mg/dL (70-99) Laboratory Tests Test 02/20/22 11:43 02/20/22 17:18 02/20/22 20:05 02/21/22 08:23 Glucose (Fingerstick) 99 mg/dL (70-99) 117 mg/dL (70-99) 146 mg/dL (70-99) 124 mg/dL (70-99) Medications Active Scripts Medications Dose Route/Sig Max Daily Dose Days Date Category Vitamin B12 (Cyanocobalamin (Vitamin B-12)) 2,500 Mcg Tablet Unknown Dose PO DAILY 30 02/18/22 Reported Meloxicam 7.5 Mg Tablet Unknown Dose PO DAILY 30 02/18/22 Reported Diovan (Valsartan) 40 Mg Tablet Unknown Dose PO DAILY 02/18/22 Reported Prilosec Otc (Omeprazole Magnesium) 20 Mg Tablet. 1 Tab PO DAILY 30 02/18/22 Reported Impression . 1. Acute hypoxic respiratory failure secondary to extensive bilateral pulmonary emboli with sparing of the main pulmonary trunk. Etiology not so obvious. She has no known cancers. She has no recent surgery. She is not on any hormone replacement treatment. Underlying obesity is a risk factor. 2. Abnormal CT angiogram as discussed above. 3. Abnormal troponin, likely secondary to right ventricular ischemia. 4. No evidence of deep venous thrombosis. 5. Rule out hypercoagulable state. 6. Abnormal echocardiogram with evidence of RV dysfunction Plan . 1. Discussed with RN . Clinically much improved. 2. Remains on room air. 3. Negative venous Dopplers of lower extremities. 4. On oral Eliquis 5. Reviewed echocardiogram. RV pressure overload noted. Hemodynamically stable. No need for thrombolytic 6. Hypercoagulable panel as an outpatient. Prescription given to the patient. 7. Outpatient work-up for any malignancy. Patient is not interested in having any work-up. 8. Discussed with Dr. Dickey and discussed with RN. 9. Will likely need longer duration of anticoagulation since etiology is not so obvious except for underlying obesity. May need lifelong maintenance anticoa gulation. 10. Okay to discharge her home. Follow-up with me in March with a CTA chest prior to the visit. I have given her prescription for blood work for hypercoagulable panel as an outpatient. ZACH RAO MD Feb 21, 2022 09:10
[2022-02-21] MEDS ORDERED: APIX5TAB PO (09:27)
--- NOTE | 2022-02-21 10:09 | DS ---
HOSPITAL COURSE: The patient is a 61-year-old female patient who presented to the Emergency Room of [facility] with complaint of shortness of breath and has been feeling generally ill like she has cold with fever. For couple of days she has had no more chills. On the day of admission, she was started to have significant increasing shortness of breath and therefore, she called the EMS. When EMS arrived, she found her to be hypoxic with oxygen saturation of only 80%. She was placed on nonrebreather mask. She was extensively investigated in the Emergency Room and initially her troponin was high, although her EKG showed no ST segment elevation. She did have a CT angio of the chest, which showed bilateral pulmonary emboli and was started on heparin drip and was transferred to [facility] where initially she continued to be on BiPAP machine; however, eventually her oxygen requirement has dropped dramatically. She was switched to Eliquis 10 mg twice a day for 7 days and eventually 5 mg twice a day. She was given that this is an unprovoked pulmonary emboli and that she has no predisposing factor and Dr. Curiel offered further investigation to the patient including colonoscopy to rule out any underlying malignancy, but the patient declined, I tried to emphasize that to her again. Meanwhile, the patient will be following with Dr. Curiel as an outpatient and clotting disorders will be ruled out later on. I did explain to the patient that she should not be taking any nonsteroidal anti-inflammatory medication given that she is now on blood thinner. PHYSICAL EXAMINATION: GENERAL: When I examined her this morning, she was sitting comfortably in her chair in no apparent respiratory distress. No pallor, jaundice, cyanosis or thyromegaly. No jugular venous distention. No limb edema. VITAL SIGNS: Her heart rate was 86, blood pressure is 140/67, temperature was 98.2, respiratory rate was 18 and oxygen saturation was 95% on room air. HEAD, EYES, EARS, NOSE, AND THROAT: Normocephalic, atraumatic. NECK: Supple. HEART: Showed normal first and second heart sounds. No gallop, rub or murmur. CHEST: Clear to auscultation, no crepitation or rhonchi. ABDOMEN: Distended, soft, nontender. NEUROLOGIC: She was grossly intact. Her lab work showed that her white cell count was 7.7, hemoglobin 12.7, hematocrit 38, MCV 95 and platelet count of 158,000. Her chemistry showed a serum sodium 139, potassium 3.6, chloride 103, bicarbonate 27, anion gap of 9, BUN 12, creatinine 0.9. Estimated GFR was 63 mL per minute. Her glucose 103, calcium was 8.3. Total bilirubin, AST, ALT, alkaline phosphatase were normal. Total protein 5.6, albumin was 2.4. FINAL DISCHARGE DIAGNOSES: 1. Acute hypoxic respiratory failure. 2. Bilateral pulmonary emboli that are unprovoked. The only predisposing factor is morbid obesity. 3. Hypertension. 4. Generalized osteoarthritis. 5. Gout. We did 6-minute walk and we will obviously prescribe oxygen depending on the outcome. She will follow with Dr. Curiel as an outpatient and also with her primary care physician, Dr. Shari Budren. CHAO/XOCHITL DR: CHAO/michelle TID: [id number]
--- NOTE | 2022-02-21 10:37 | NUR ---
SS following up with discharge planning. SS reviewed pt chart and discussed with pt RN. Pt is currently on room air. COVID19 negative. PT/OT recommended home independent. Six minute walk completed and no oxygen needed. Discharge order on the chart for home with self care.
[2022-02-26] MEDS ORDERED: APIXABAN 5 MG TABLET. PO SCH (09:00)
== END 2022-02-21 10:45 | disposition home or self-care (01) | DRG 175 ==
LOC: 1 WEST ICU 02-18 00:59 → 6 SOUTH 02-19 14:15
PROVIDERS: ADMIT Internal Medicine; ATTEND Internal Medicine
PROC: 5A09357 Assistance with Respiratory Ventilation, Less than 24 Consecutive Hours, Continuous Positive Airway Pressure (ICD-10-PCS; principal; 2022-02-18)
PROC: 5A09357 Assistance with Respiratory Ventilation, Less than 24 Consecutive Hours, Continuous Positive Airway Pressure (ICD-10-PCS; 2022-02-19)
DX: I26.99 Other pulmonary embolism without acute cor pulmonale (principal); J96.01 Acute respiratory failure with hypoxia; I21.A1 Myocardial infarction type 2; N17.9 Acute kidney failure, unspecified; D72.829 Elevated white blood cell count, unspecified; E11.65 Type 2 diabetes mellitus with hyperglycemia; E66.01 Morbid (severe) obesity due to excess calories; I11.9 Hypertensive heart disease without heart failure; I48.91 Unspecified atrial fibrillation; M10.9 Gout, unspecified; M15.9 Polyosteoarthritis, unspecified; Z20.822 Contact with and (suspected) exposure to COVID-19; Z96.653 Presence of artificial knee joint, bilateral; K21.9 Gastro-esophageal reflux disease without esophagitis; Z68.34 Body mass index [BMI] 34.0-34.9, adult; Z79.01 Long term (current) use of anticoagulants; Z82.3 Family history of stroke; Z82.49 Family history of ischemic heart disease and other diseases of the circulatory system; Z98.1 Arthrodesis status; Z88.8 Allergy status to other drugs, medicaments and biological substances; Z91.040 Latex allergy status
CPT/HCPCS: 36415; 36600; 80048; 80053; 80061; 82805; 82962; 83036; 84484; 85025; 85520; 93306; 93970; 94618; 94660; 94760; C9113; J1644; J1815; J2405; J7030; J7040; U0003; 97535-GO; C8929; G0378

== ENCOUNTER → 2022-02-21 | Outpatient (CLI) | payer BC ==
[~2022-02-21] MED LIST: APIX5TAB PO; CYAN25008 PO; MELO7.5T29 PO; OMEP20TA63 PO; VALS40TA2 PO
[2022-02-21 02:28] VITALS: BP 140/67
== END ==
LOC: LAB 10:54
PROVIDERS: ATTEND Internal Medicine
DX: I26.99 Other pulmonary embolism without acute cor pulmonale (principal)
CPT/HCPCS: 81241; 86147

== ENCOUNTER → 2022-03-20 | Outpatient (CLI) | payer BC ==
[2022-02-21 02:28] VITALS: BP 140/67
[~2022-03-20] MED LIST changes: +ANTI-COAG MONITOR BY PHARMACY. MC PRN; +IOHEXOL 350 MG/ML 100 ML VIAL. IV ONE
--- NOTE | 2022-03-20 09:52 | RAD ---
CTA CHEST History: Follow-up PE, short of air. Comparison: CTA chest 02/17/2022 Technique: CTA of the pulmonary arteries with intravenous contrast. 3-D postprocessing was performed. Findings: Pulmonary arteries: There are persistent multiple bilateral pulmonary emboli involving the upper, mid dle and lower lobar pulmonary arteries extending into multiple segmental and distal branches. There h as been an overall decrease in the clot size and conspicuity. Aorta and great vessels: No aneurysm or dissection of the aortic arch or thoracic aorta. Thyroid: No significant abnormalities. Mediastinum and greg: No mediastinal masses or adenopathy is seen. Esophagus: The visualized esophagus is normal. Heart: The heart is normal in size. There is no pericardial effusion. Airways, Lungs, Pleura: The central airways are patent. Mild dependent changes. No airspace consolida tion. No effusion or pneumothorax. Calcified granuloma right lower lobe. Upper abdomen: Limited evaluation of the upper abdomen is unremarkable. Osseous structures and soft tissues: Within normal limits for age. Impression: 1. Persistent booker lobar pulmonary emboli with decreasing size and conspicuity from comparison. ------ Exposure: One or more of the following individualized dose reduction techniques were utilized for thi s examination: 1. Automated exposure control 2. Adjustment of the mA and/or kV according to patient size 3. Use of iterative reconstruction technique. Electronically signed by: Charbel Anders MD (03/20/2022 9:49 AM) [facility]
== END ==
LOC: CT 08:39
PROVIDERS: ATTEND Internal Medicine Critical Care Medicine
DX: I26.99 Other pulmonary embolism without acute cor pulmonale (principal); J84.10 Pulmonary fibrosis, unspecified
CPT/HCPCS: 71275; Q9967